=== PATIENT | female | born 1995 | race Caucasian/White ===

== ENCOUNTER 2022-10-08 17:32 | Emergency (ER) | payer MEDICAID ==
[~2022-10-08] VITALS: Ht 175.3 cm; Wt 127.0 kg
[2022-10-08] MEDS ORDERED: METHOCARBAMOL 500MG TABLET PO ONE (18:30)
[2022-10-08] MEDS ORDERED: ACETAMINOPHEN 325MG TABLET PO ONE (18:30)
[2022-10-08 20:17] LABS: BASOPHILS % 0.5 % (0.0-2.0); EOSINOPHILS % 0.2 % (0.0-5.0); HEMATOCRIT. 35.8 % (36.0-48.0); HEMOGLOBIN. 12.3 g/dL (12.0-16.0); MEAN CORPUSCULAR HEMOGLOBIN 28.9 pg (28.0-32.0); MEAN CORPUSCULAR VOLUME 84.1 fL (81.0-99.0); MEAN PLATELET VOLUME 9.5 fl (7.4-10.4); MONOCYTES % 6.2 % (2.0-8.0); NEUTROPHILS % 72.1 % (40.0-76.0); PLATELET 246 x1000/uL (130-400); RED BLOOD CELL COUNT 4.26 mill/uL (4.2-5.4); RED CELL DISTRIBUTION WIDTH 12.9 % (11.6-14.6)
[2022-10-08 20:29] LABS: CHLORIDE 107 mEq/L (98-107)
[2022-10-08] MEDS ORDERED: TOPUD MT (21:51)
[2022-10-08 22:00] VITALS: BP 132/71
== END 2022-10-08 22:16 | disposition home or self-care (01) ==
LOC: ER 17:32
DX: M25.512 Pain in left shoulder (principal); Z98.890 Other specified postprocedural states; Z88.1 Allergy status to other antibiotic agents; Z88.3 Allergy status to other anti-infective agents; V49.9XXA Car occupant (driver) (passenger) injured in unspecified traffic accident, initial encounter; Y93.89 Activity, other specified; Y92.89 Other specified places as the place of occurrence of the external cause; Y99.8 Other external cause status
CPT/HCPCS: 36415; 71045; 74177; 80053; 81025; 85025; 86850; 86900; 86901; 99285; Z7610